=== PATIENT | female | born 1935 | race African-American/Black ===

== ENCOUNTER 2023-01-26 17:48 | Inpatient (IN) | payer BC, MEDICAID ==
[~2023-01-26] VITALS: Ht 162.6 cm; Wt 68.9 kg
[2023-01-26 21:32] LABS: Basophils # (auto) 0 10 ^3/uL (0-0.2); Basophils % (auto) 0.6 % (0.0-2.0); Eosinophils # (auto) 0.3 10 ^3/uL (0-0.8); Eosinophils % (auto) 5.1 % (0.0-7.0); Hematocrit 32.1 % (36.0-46.0); Hemoglobin 10.7 g/dL (12.2-16.2); Lymphocytes # (auto) 1.2 10 ^3/uL (0.4-5.4); Lymphocytes % (auto) 20.4 % (10.0-50.0); Mean Corpuscular Hemoglobin 32.2 pg (28.0-32.0); Mean Corpuscular Hgb Conc. 33.3 g/dL (32.0-36.0); Mean Corpuscular Volume 96.7 fL (80.0-100.0); Monocytes # (auto) 0.6 10 ^3/uL (0-1.3); Monocytes % (auto) 10.2 % (0.0-12.0); Neutrophils # (auto) 3.6 10 ^3/uL (1.6-8.6); Neutrophils % (auto) 63.7 % (37.0-80.0); Nucleated Red Blood Cells % 0.1 %; Red Blood Cells 3.32 10^6/uL (4.0-5.20); Red Cell Distribution Width 13.3 % (11.8-14.3); White Blood Cell 5.7 10^3/uL (4.4-10.8)
[2023-01-26 21:45] LABS: Albumin 3.4 g/dL (3.4-5.0); BUN/Creatinine Ratio 17.1 (10.0-20.0); Calcium 9.1 mg/dL (8.5-10.1); Potassium 4.9 mmol/L (3.5-5.1)
[2023-01-26 21:47] LABS: INR 1.15 (0.9-1.15); Partial Thromboplastin Time 27.7 sec (24.6-33.4)
[2023-01-26] MEDS ORDERED: hydrALAZINE HCL 20 MG/ML VL IV ONE (23:45)
[2023-01-27] MEDS ORDERED: ASPirin 325 MG TAB PO ONE (01:15)
[2023-01-27] MEDS ORDERED: HEPARIN DRIP/D5W 100UNITS/ML 250 ML IV SCH ×2 (01:15→21:00)
[2023-01-27] MEDS ORDERED: METOPROLOL TARTRATE 1MG/1ML-5ML VIAL IV ONE (01:15)
[2023-01-27] MEDS ORDERED: HEPARIN SODIUM (PORCINE) 5000 UNITS/ML 1ML VIAL IV ONE ×2 (01:15→21:00)
[2023-01-27 02:28] LABS: INR 1.22 (0.9-1.15)
[2023-01-27] MEDS ORDERED: NITROGLYCERIN 0.4 MG SL TAB SL PRN (02:45)
[2023-01-27] MEDS ORDERED: ACETAMINOPHEN 325 MG TAB PO PRN (02:45)
[2023-01-27] MEDS ORDERED: ONDANSETRON HCL 4 MG/2 ML VIAL IV PRN (02:45)
[2023-01-27] MEDS ORDERED: MORPHINE SULFATE INJ 2 MG/ml SYRG IV PRN (02:45)
[2023-01-27 02:47] LABS: Partial Thromboplastin Time 82.8 sec (24.6-33.4)
[2023-01-27] MEDS ORDERED: LABETALOL HCL 5 MG/ML 4ML SYRINGE IV ONE (03:45)
[2023-01-27] MEDS: hydrALAZINE HCL 20 MG/ML VL IV PRN (05:46)
[2023-01-27 08:07] LABS: INR 1.16 (0.9-1.15); Partial Thromboplastin Time 55.2 sec (24.6-33.4)
[2023-01-27] MEDS: HYDROcodone-ACET 5/325MG TAB PO PRN ×3 (08:39→21:21)
[2023-01-27] MEDS ORDERED: PANTOPRAZOLE 40 MG TAB PO SCH (10:00)
[2023-01-27] MEDS: GABAPENTIN 100 MG CAP PO SCH (11:08)
[2023-01-27] MEDS: CARVEDILOL 12.5 MG TAB PO SCH ×2 (11:09→22:18)
[2023-01-27] MEDS: VALSARTAN 80 MG TAB PO SCH (11:09)
[2023-01-27 20:18] LABS: Basophils # (auto) 0 10 ^3/uL (0-0.2); Basophils % (auto) 0.6 % (0.0-2.0); Eosinophils # (auto) 0.2 10 ^3/uL (0-0.8); Eosinophils % (auto) 4.9 % (0.0-7.0); Hematocrit 32.9 % (36.0-46.0); Hemoglobin 10.9 g/dL (12.2-16.2); Lymphocytes # (auto) 0.8 10 ^3/uL (0.4-5.4); Lymphocytes % (auto) 17.1 % (10.0-50.0); Mean Corpuscular Hemoglobin 32.3 pg (28.0-32.0); Mean Corpuscular Volume 97.7 fL (80.0-100.0); Monocytes # (auto) 0.6 10 ^3/uL (0-1.3); Monocytes % (auto) 11.6 % (0.0-12.0); Neutrophils # (auto) 3.2 10 ^3/uL (1.6-8.6); Neutrophils % (auto) 65.8 % (37.0-80.0); Red Blood Cells 3.37 10^6/uL (4.0-5.20); Red Cell Distribution Width 13.3 % (11.8-14.3); White Blood Cell 4.9 10^3/uL (4.4-10.8)
[2023-01-27 20:27] LABS: Urine Bacteria MOD /hpf (None Seen); Urine Blood TRACE /uL (Negative); Urine Hyaline Cast FEW /lpf (0 - 2); Urine Specific Gravity 1.012 (1.001-1.035); Urine WBC 91 /hpf (0 - 5)
[2023-01-27 20:44] LABS: Albumin 3.1 g/dL (3.4-5.0); BUN/Creatinine Ratio 17.2 (10.0-20.0); Calcium 8.8 mg/dL (8.5-10.1)
[2023-01-27 20:55] LABS: Total Protein 6.8 g/dL (6.4-8.2)
[2023-01-28] VITALS (8 sets, daily range): BP systolic 144–172; BP diastolic 48–88
[2023-01-28 06:03] LABS: Basophils # (auto) 0.1 10 ^3/uL (0-0.2); Basophils % (auto) 1.3 % (0.0-2.0); Eosinophils # (auto) 0.2 10 ^3/uL (0-0.8); Eosinophils % (auto) 5.2 % (0.0-7.0); Hemoglobin 9.6 g/dL (12.2-16.2); Lymphocytes # (auto) 1.1 10 ^3/uL (0.4-5.4); Lymphocytes % (auto) 23.9 % (10.0-50.0); Mean Corpuscular Hgb Conc. 34.5 g/dL (32.0-36.0); Mean Corpuscular Volume 95.8 fL (80.0-100.0); Monocytes # (auto) 0.5 10 ^3/uL (0-1.3); Neutrophils # (auto) 2.7 10 ^3/uL (1.6-8.6); Neutrophils % (auto) 58.6 % (37.0-80.0); Nucleated Red Blood Cells % 0.3 %; Red Blood Cells 2.92 10^6/uL (4.0-5.20); Red Cell Distribution Width 13.4 % (11.8-14.3); White Blood Cell 4.7 10^3/uL (4.4-10.8)
[2023-01-28 07:16] LABS: Albumin 2.8 g/dL (3.4-5.0); Calcium 8.5 mg/dL (8.5-10.1); Potassium 5.1 mmol/L (3.5-5.1)
[2023-01-28 07:19] LABS: BUN/Creatinine Ratio 16.8 (10.0-20.0)
[2023-01-28 07:25] LABS: INR 1.18 (0.9-1.15)
[2023-01-28] MEDS ORDERED: SODIUM ZIRCONIUM CYCL 10 GM PAK PO ONE (08:30)
[2023-01-28] MEDS: VALSARTAN 80 MG TAB PO SCH (10:00)
[2023-01-28] MEDS: GABAPENTIN 100 MG CAP PO SCH (10:00)
[2023-01-28] MEDS: CARVEDILOL 12.5 MG TAB PO SCH ×2 (10:31→22:00)
[2023-01-28] MEDS: hydrALAZINE HCL 20 MG/ML VL IV PRN (10:32)
[2023-01-28] MEDS ORDERED: VERAPAMIL 2.5MG/ML INJ 2ML VIAL IV ONE (11:44)
[2023-01-28] MEDS ORDERED: ANGIOMAX 250 MG VIAL IV ONE (11:44)
[2023-01-28] MEDS ORDERED: MIDAZOLAM HCL 2MG/2ML 2ml VIAL (1mg/ml) ONE (11:44)
[2023-01-28] MEDS ORDERED: fentaNYL CITRATE 100 MCG/2 ML VL ONE (11:44)
[2023-01-28] MEDS ORDERED: SODIUM CHL 0.9% 0 ML ONE (11:45)
[2023-01-28] MEDS ORDERED: LIDOCAINE 2%HCL (LOCAL ANESTH.) INJ 10ml MDV ONE (11:45)
[2023-01-28] MEDS ORDERED: IODIXANOL 320MG/ML 100ML BTL IV ONE (12:22)
[2023-01-28] MEDS ORDERED: LIDOCAINE 2%HCL (LOCAL ANESTH.) INJ 20ML MDV ONE (12:28)
[2023-01-28] MEDS ORDERED: HEPARIN SODIUM (PORCINE) 5000 UNITS/ML 1ML VIAL ONE (12:47)
[2023-01-28] MEDS ORDERED: LABETALOL HCL 5 MG/ML 4ML SYRINGE IV PRN (13:00)
[2023-01-28] MEDS: cefTRIAXone 1GM/50ML D5W 50 ML IV SCH (15:15)
[2023-01-28] MEDS: HYDROcodone-ACET 5/325MG TAB PO PRN ×2 (17:00→21:59)
[2023-01-28 17:12] LABS: INR 1.13 (0.9-1.15); Partial Thromboplastin Time 33.6 sec (24.6-33.4)
[2023-01-28 22:27] LABS: INR 1.18 (0.9-1.15)
[2023-01-28 22:35] LABS: Partial Thromboplastin Time 89.2 sec (24.6-33.4)
[2023-01-28] MEDS ORDERED: HEPARIN DRIP/D5W 100UNITS/ML 250 ML IV SCH (23:00)
[2023-01-29] MEDS ORDERED: SODIUM CHL 0.9% 1000 ML BAG XX ONE (07:00)
[2023-01-29 07:01] LABS: Basophils # (auto) 0 10 ^3/uL (0-0.2); Basophils % (auto) 0.6 % (0.0-2.0); Eosinophils # (auto) 0.1 10 ^3/uL (0-0.8); Eosinophils % (auto) 3.2 % (0.0-7.0); Hematocrit 29.7 % (36.0-46.0); Hemoglobin 10.1 g/dL (12.2-16.2); Lymphocytes # (auto) 0.8 10 ^3/uL (0.4-5.4); Lymphocytes % (auto) 18.4 % (10.0-50.0); Mean Corpuscular Hemoglobin 32.6 pg (28.0-32.0); Mean Corpuscular Hgb Conc. 34.2 g/dL (32.0-36.0); Mean Corpuscular Volume 95.4 fL (80.0-100.0); Monocytes # (auto) 0.4 10 ^3/uL (0-1.3); Monocytes % (auto) 9.8 % (0.0-12.0); Nucleated Red Blood Cells % 0.1 %; Red Blood Cells 3.11 10^6/uL (4.0-5.20); Red Cell Distribution Width 13.1 % (11.8-14.3); White Blood Cell 4.5 10^3/uL (4.4-10.8)
[2023-01-29 07:15] LABS: INR 1.13 (0.9-1.15); Partial Thromboplastin Time 45.3 sec (24.6-33.4)
[2023-01-29 07:19] LABS: Potassium 4.7 mmol/L (3.5-5.1)
[2023-01-29 07:21] LABS: BUN/Creatinine Ratio 15.8 (10.0-20.0); Calcium 8.8 mg/dL (8.5-10.1)
[2023-01-29 07:23] LABS: % Iron Saturation 30.1 % (15-50)
[2023-01-29] MEDS ORDERED: HEPARIN DRIP/D5W 100UNITS/ML 250 ML IV SCH ×2 (08:30→15:45)
[2023-01-29 09:18] VITALS: BP 173/81
[2023-01-29] MEDS: CARVEDILOL 12.5 MG TAB PO SCH (10:00)
[2023-01-29] MEDS ORDERED: VALSARTAN 80 MG TAB PO SCH (10:00)
[2023-01-29] MEDS: GABAPENTIN 100 MG CAP PO SCH (10:26)
[2023-01-29] MEDS: cefTRIAXone 1GM/50ML D5W 50 ML IV SCH (10:26)
[2023-01-29 12:30] VITALS: BP 162/87
[2023-01-29 15:32] LABS: INR 1.18 (0.9-1.15); Partial Thromboplastin Time 42.4 sec (24.6-33.4)
[2023-01-29 16:48] VITALS: BP 121/49
[2023-01-29] MEDS: HYDROcodone-ACET 5/325MG TAB PO PRN (18:22)
[2023-01-29] MEDS ORDERED: EPOETIN ALFA-EPBX 10,000 UNIT/1ML VIAL SC ONE (21:00)
[2023-01-30 12:26] LABS: Hepatitis B Core IgM Negative; Hepatitis C Antibody Negative (Negative)
[2023-01-30 12:27] LABS: Hepatitis A Ab IgM Negative
== END 2023-01-29 20:40 | disposition short-term general hospital (02) | DRG 280 ==
LOC: ER 17:48 → TELE 01-27 02:35 → TELE-EAST 01-28 16:10
PROVIDERS: ADMIT Nurse Practitioner; ATTEND Nurse Practitioner Acute Care
PROC: B34HZZZ Ultrasonography of Right Upper Extremity Arteries (ICD-10-PCS; principal; 2023-01-27)
PROC: B211YZZ Fluoroscopy of Multiple Coronary Arteries using Other Contrast (ICD-10-PCS; 2023-01-27)
PROC: 4A023N7 Measurement of Cardiac Sampling and Pressure, Left Heart, Percutaneous Approach (ICD-10-PCS; 2023-01-27)
PROC: 5A1D70Z Performance of Urinary Filtration, Intermittent, Less than 6 Hours Per Day (ICD-10-PCS; 2023-01-29)
DX: I21.4 Non-ST elevation (NSTEMI) myocardial infarction (principal); N18.6 End stage renal disease; E87.29 Other acidosis; I16.1 Hypertensive emergency; I12.0 Hypertensive chronic kidney disease with stage 5 chronic kidney disease or end stage renal disease; I24.9 Acute ischemic heart disease, unspecified; D64.9 Anemia, unspecified; E11.22 Type 2 diabetes mellitus with diabetic chronic kidney disease; E78.5 Hyperlipidemia, unspecified; E86.0 Dehydration; E87.8 Other disorders of electrolyte and fluid balance, not elsewhere classified; F10.129 Alcohol abuse with intoxication, unspecified; I25.10 Atherosclerotic heart disease of native coronary artery without angina pectoris; I51.7 Cardiomegaly; S01.412A Laceration without foreign body of left cheek and temporomandibular area, initial encounter; S01.81XA Laceration without foreign body of other part of head, initial encounter; Y90.9 Presence of alcohol in blood, level not specified; D63.1 Anemia in chronic kidney disease; Z20.822 Contact with and (suspected) exposure to COVID-19; I35.0 Nonrheumatic aortic (valve) stenosis; W18.30XA Fall on same level, unspecified, initial encounter; Y92.009 Unspecified place in unspecified non-institutional (private) residence as the place of occurrence of the external cause; Z99.2 Dependence on renal dialysis; Z85.3 Personal history of malignant neoplasm of breast; Z90.13 Acquired absence of bilateral breasts and nipples
CPT/HCPCS: 36415; 70450; 70486; 71045; 72125; 80048; 80053; 80074; 80320; 81001; 82728; 82962; 83540; 83550; 84484; 85025; 85610; 85730; 87086; 87426; 90935; 93005; 93306; 93458; 96365; 96375; 97116; 97163; 97530; 99152; 99153; C1894; G0378; J0696; J2001; J2250; J3490; Q9967